=== PATIENT | male | born 1990 | race Caucasian/White ===

== ENCOUNTER 2016-02-22 09:15 | Day surgery (SDC) | payer OTHER ==
[~2016-02-22] VITALS: Ht 180.3 cm; Wt 99.8 kg
[~2016-02-22 09:15] MED LIST: 0.9% Sodium Chloride 1,000 ML IV SCH; ADAL40KI SQ; AZTH50T PO; PRED50TA PO; Sodium Chloride LOK Flush 10 mL Syringe IV PRN; fentaNYL-PF 50 mCg/mL 2 mL Inj IVPUSH PRN
[2016-02-22 09:41] VITALS: BP 138/60; PULSE 67; RESP 16; O2SAT 96
[2016-02-22 10:43] VITALS: BP 103/58; PULSE 60; RESP 14; O2SAT 95
[2016-02-22 10:52] VITALS: BP 104/56; PULSE 65; RESP 14; O2SAT 97
[2016-02-22 10:56] VITALS: BP 110/69; PULSE 88; RESP 14; O2SAT 98
--- NOTE | 2016-02-22 11:53 | ENDO ---
[address] [address] ENDOSCOPY PROCEDURE PATIENT: GABRIELA OVALLES : 1990 MR#: [id number] ADMIT: 02/22/2016 JOB ID: [id number] PROCEDURE: Colonoscopy. INDICATION: The patient with a history of Crohn's disease involving the large intestine, who is currently on treatment with Humira and azathioprine. 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 Currently, he still has one seton in place. ASA CLASSIFICATION: 2. MALLAMPATI SCORE: 2. MEDICATIONS: Versed 6 mg, fentanyl 125 mcg. INSTRUMENT USED: Band Digital-H180-AL. PREPARATION QUALITY: Fair. PROCEDURE DETAILS: After completion of the digital rectal exam, which revealed a blue seton in place, there appeared to be healthy tissue surrounding the seton. A digital rectal exam was otherwise unremarkable. The colonoscope was then inserted into the rectum and advanced under direct visualization to the terminal ileal which was identified by the presence of the ileocecal valve and villous- appearing mucosa of the terminal ileum. Once the terminal ileum was reached, multiple random biopsies were obtained throughout the terminal ileum. The scope was then gradually withdrawn from the terminal ileum, and in the cecum, the mucosa appeared unremarkable. 1. Starting from the distal ascending colon to the distal sigmoid colon and portions of the rectum, the mucosa had an appearance consistent with neovascularization, along with evidence of prior scar tissue. There was also pseudopolyps seen throughout the distal ascending colon extending to the sigmoid colon. 2. Multiple random biopsies were obtained throughout the right colon, transverse colon, left colon and rectum. 3. In the ascending colon, there was an approximately 4 mm sessile polyp that was removed with a cold snare. 4. There were pseudopolyps in the distal ascending colon that were sampled. IMPRESSION: 1. Neovascularization followed by scar tissue and pseudopolyps involving the distal ascending colon to the sigmoid colon. 2. Ascending colon polyp. 3. Minimal to mildly active Crohn's disease involving the distal ascending colon to the sigmoid colon. 4. Perianal fistula with seton in place. RECOMMENDATIONS: 1. Await biopsy results. 2. Continue Humira and azathioprine at this time. 3. Follow up in the GI Clinic in 4-6 weeks. COMPLICATIONS: None. ESTIMATED BLOOD LOSS: Less than 5 mL.
--- NOTE | 2016-02-23 12:02 | PATH ---
SURGICAL PATHOLOGY Attending Physician:Jai Park CASE STATUS: Signed Out PATIENT NAME: GABRIELA OVALLES PID: [id number] : 1990 DATE COLLECTED:02/22/2016 15:24 SPECIMEN: 1: Ileum, Biopsy 2: Colon, Biopsy 3: Colon, Biopsy 4: Colon, Biopsy 5: Rectum, Biopsy 6: Colon, Biopsy 7: Colon, Biopsy CLINICAL HISTORY: A: TERMINAL ILEUM BIOPSY B: RIGHT COLON BIOPSY C: TRANSVERSE COLON BIOPSY D: LEFT COLON BIOPSY E: RECTUM BIOPSY F: ASCENDING COLON POLYP G: PSEUDOPOLYP DISTAL ASCENDING COLON FINAL DIAGNOSIS: 1.ILEUM, BIOPSY: NORMAL SMALL BOWEL MUCOSA. No significant inflammation identified. No evidence of dysplasia or malignancy. 2.RIGHT COLON BIOPSY: NORMAL COLONIC MUCOSA. No significant inflammation identified. No evidence of dysplasia or malignancy. 3.TRANSVERSE COLON BIOPSY: NORMAL COLONIC MUCOSA. No significant inflammation identified. No evidence of dysplasia or malignancy. 4.LEFT COLON BIOPSY:PATCHY, MILD ACTIVE COLITIS WITHOUT DISTORTION OF THE MUCOSAL ARCHITECTURE. Negative for granulomas, dysplasia and malignancy. 5.RECTUM BIOPSY: NORMAL COLONIC MUCOSA. No significant inflammation identified. No evidence of dysplasia or malignancy. 6.ASCENDING COLON POLYP: SESSILE SERRATED ADENOMA. No evidence of invasive neoplasm or high-grade dysplasia. 7.POLYP, DISTAL ASCENDING COLON: BENIGN COLONIC MUCOSA CONSISTENT WITH POLYPOID REDUNDANCY. No evidence of malignancy or dysplasia. ICD10 code K51.9 D12.6 GROSS DESCRIPTION: The specimen is received in seven formalin filled containers labeled with the patient's name. 1). The specimen is sublabeled "terminal ileum" and consists of 2 portions of tissue which aggregate to 0.4 x 0.4 x 0.3 CM. The specimen is entirely submitted in cassette 1A. 2). The specimen is sublabeled "right colon" and consists of multiple portions of tissue which aggregate to 0.5 x 0.5 x 0.2 CM. The specimen is entirely submitted in cassette 2A. 3). The specimen is sublabeled "transverse colon" and consists of multiple portions of tissue which aggregate to 0.5 x 0.5 x 0.2 CM. The specimen is entirely submitted in cassette 3A. 4). The specimen is sublabeled "left colon" and consists of 4 portions of tissue which aggregate to 0.5 x 0.5 x 0.3 CM. The specimen is entirely submitted in cassette 4A. 5). The specimen is sublabeled "rectum" and consists of 3 portions of tissue which aggregate to 0.6 0.6 0.3 CM. The specimen is entirely submitted in cassette 5A. 6). The specimen is sublabeled "ascending colon polyp" and consists of 3 portions of tissue which aggregate to 0.7-0.3 x 0.2 CM. The specimen is entirely submitted in cassettes 6A. 7). The specimen is sublabeled "pseudopolyp distal ascending colon" and consists of 2 portions of tissue which aggregate to 0.4 x 0.3 x 0.2 CM. The specimen is entirely submitted in cassette 7A. 02/22/2016 DAC MICRO DESCRIPTION: See diagnosis. ICD-9 CODES: CPT CODES: 1: 65701 2: 31511 3: 54779 4: 23650 5: 75955 6: 57605 7: 18635 Electronically Signed Out Jose Almanzar MD [facility] Pathology [facility] [address] [facility], [place] [address] Technical component performed at [facility], [facility] [address], [place], [address]
== END 2016-02-22 23:59 | disposition home or self-care (01) ==
LOC: END 09:15
PROVIDERS: ATTEND Internal Medicine Gastroenterology
DX: K50.113 Crohn's disease of large intestine with fistula (principal); K52.9 Noninfective gastroenteritis and colitis, unspecified; D12.2 Benign neoplasm of ascending colon; K63.5 Polyp of colon; J30.2 Other seasonal allergic rhinitis; Z79.52 Long term (current) use of systemic steroids
CPT/HCPCS: 45380; J2250; J7030

== ENCOUNTER 2016-07-18 05:51 | Day surgery (SDC) | payer OTHER ==
[2016-07-18] VITALS (9 sets, daily range): BP systolic 112–147; BP diastolic 60–82; PULSE 62–102; RESP 16–22; O2SAT 94–100
[~2016-07-18] VITALS: Ht 180.3 cm; Wt 105.7 kg
[~2016-07-18 05:51] MED LIST changes: -0.9% Sodium Chloride 1,000 ML IV SCH; +Lactated Ringer's 1,000 ML IV ONE; -PRED50TA PO; -Sodium Chloride LOK Flush 10 mL Syringe IV PRN; -fentaNYL-PF 50 mCg/mL 2 mL Inj IVPUSH PRN
[2016-07-18] MEDS ORDERED: Dexamethasone 4 mg/mL Inj ONE (05:52)
[2016-07-18] MEDS ORDERED: Ondansetron 2 mg/mL 2 mL Inj ONE (05:52)
[2016-07-18] MEDS ORDERED: Propofol 10,000 mCg/mL 20 mL Inj ONE (05:52)
[2016-07-18] MEDS ORDERED: fentaNYL-PF 50 mCg/mL 2 mL Inj ONE (05:52)
--- NOTE | 2016-07-18 07:22 | PCM.HPANE ---
Patient Data Surgeon Admitting Provider: Attending Provider:Elgin Malik MD Primary Care Physician:Jackie Other Provider:Claudia Garcia Anesthesia Reason for Visit Fistula In Ano, Crohn's Disease Ht/WT & BMI Height (Feet): 5 Height (Inches): 11.00 Weight (Kilograms): 105.7 Body Mass Index 32.00 Allergies Coded Allergies: No Known Allergies (Verified Allergy, Unknown, 07/14/16) Past Anesthesia History Anesthesia History: Denies:: Abnormal Airway, Anesthesia Reactions, Difficult Intubation, Fam Anesthesia Reaction, Fam Malignant Hypertherm, Malignant Hyperthermia Diabetes History Hx Diabetes?: No Current Bedside Blood Glucose: 99 MRSA MRSA: No Medications Home Meds Incl Beta Scot: No Reported Medications Adalimumab (Humira)40 Mg/0.8 Ml Kit40 Mg SQ every other week 06/12/14 Azathioprine 50 Mg Tablet3 Tab PO DAILY 30 Days Ref 0 06/12/14 History History of ENT Problems?: Yes HEENT History: Positive for:: Sinus Problem (SEASONAL ALLERGIES HX LARYNGITIS) Denies:: Abnormal Airway Difficult Intubation Dysphagia Hearing Problem Denture Type: None Teeth Condition: Within Normal Limits Other HEENT Pertinent History: S/P WISDOM TEETH EXTRACTIONS Hx of Heart Problems?: No Cardiovascular History: Denies:: AICD Atrial Fibrillation Chest Pain Congestive Heart Failure Heart Murmur Hypertension Pacemaker Valvular Heart Disease Hx of Respiratory Problem?: Yes Respiratory History: Positive for:: Dyspnea (HX WHEEZING W/ URI'S) Denies:: Asthma COPD Cough Hemoptysis Pneumonia Tuberculosis Use of C-PAP Machine Hx Neurologic Problems?: No Neurological History: Denies:: CVA Dementia Hx of GI Problems?: Yes Other GI Pertinent History: S/P SETON PLAEMENT ([address]) C/OF DIARRHEA HAS SEEN DR[facility] FRANCISCO HIDALGO/[facility] INFLAMMATORY BOWEL CLINIC DISTULA IN ANO/CROHN'S=CURRENT PROBLEM Hx of Problems?: No Male Hx: Denies:: Prostate Problems Scrotal Mass Testicular Surgery Skin History: Denies:: History Skin Disorders? Pressure Ulcers Hx Musculoskeletal Problems?: No Musculoskeletal History: Denies:: Joint Replacement Hx of Psycho/Social Problems?: No Psycho Social History: Denies:: Anxiety Hx Depression Hx Surgeries?: Yes (perirectal fistula, upper wisdom teeth removed,SETON PLCMT) Hx Any Other Health Problems?: Yes Other History: Positive for:: Hospitalization (for crohn's ) Denies:: Cancer Endocrine Disease Thyroid Disease History Blood Transfusions: Denies:: Blood Transfusions Hx Diabetes: NoBedside Blood Glucose: 99 Hx Alcohol Use: Yes (rarely )Hx Substance Use: No Smoking Status: Current Every Day Smoker Light Tobacco Smoker Have You Smoked inLast 12 mo: Yes (pipe) Stop/Bang S-Snoring: Do You Snore Loudly: No T-Tired: feel tired, fatigued: No O-Obsered: Observed not breath: No P-Blood Pressure: treated: No B- Body Mass Index > 35 kg/m2: No A- Age over 50: No N- Neck Large Circumference: Yes G- Gender Male: Yes DEMETRIUS Total Score: 2 DEMETRIUS Risk Assessment: Low Risk, <3 Yes Risk Assessment Category Category 1A: Patient has history of documented sleep apnea, and HAS NOT received any narcotic, sedative or anesthesia administration during this stay. Category 1B: Patient has history of documented sleep apnea, and HAS received any narcotic , sedative or anesthesia administration during this stay Category 2: Patient has SUSPECTED Obstructive Sleep Apnea, and HAS received any narcotic , sedative or anesthesia administration during this stay. Category 3: Patient has SUSPECTED Obstructive Sleep Apnea and HAS NOT received narcotic, sedative or anesthesia administration during this stay. Category 4: Outpatient in Procedural Areas with known sleep apnea or who screen positive for High Risk via the STOP/BANG questionnaire. Exam Exam Vital Signs Vital Signs Date Time Temp Pulse Resp B/P Pulse Ox O2 Delivery O2 Flow Rate FiO2 07/18/16 06:31 37.2 74 18 142/82 99 Room Air General Appearance: Alert, Oriented X3, Cooperative, No Acute Distress HEENT/AIRWAY: MP 2 Lungs: Clear to Auscultation, Normal Air Movement Heart: Exam Unremarkable, Regular Rate/Rhythm, No Murmurs/Rubs/Gallops Meds/Labs/Diagnostics Admission Meds Current Medications Lactated Ringer's (Lr) 1,000 ml @ 120 mls/hr Q8H20M ONCE IV Last administered on 07/18/16t 05:15; Start 07/18/16 at 05:00; Stop 07/18/16 at 13:19 Bedside Blood Glucose: 99 Plan Impression Patient chart reviewed, patient interviewed and anesthestic plan with risks, benefits, and alternatives discussed, and informed consent obtained. NPO per Anesth. Guidelines: Yes ASA Physical Status: ASA2 Mod Systemic Disease Anesthetic Plan: GA Bene/Risks/Altern/Consents: Yes HP Complete Prior to Induction: Yes Ishmael Montes De Oca MD July 18, 2016 07:22
[2016-07-18] MEDS ORDERED: Bupivacaine-MPF 0.25%/EPI 30 mL Inj INFILTRATE ONE (07:41)
[2016-07-18] MEDS ORDERED: Lactated Ringer's 1,000 ML IV SCH (07:46)
[2016-07-18] MEDS ORDERED: Lactated Ringer's 500 ML IV PRN (07:46)
[2016-07-18] MEDS ORDERED: MetoCLOpramide 5 mg/mL 2 mL Inj IVPUSH PRN (07:50)
[2016-07-18] MEDS ORDERED: HYDROmorphone 1 mg/mL Inj IVPUSH PRN (07:50)
[2016-07-18] MEDS ORDERED: Dexamethasone 4 mg/mL Inj IVPUSH PRN (07:50)
[2016-07-18] MEDS ORDERED: Atropine 0.4 mg/mL Inj IVPUSH PRN (07:50)
[2016-07-18] MEDS ORDERED: fentaNYL-PF 50 mCg/mL 2 mL Inj IVPUSH PRN (07:50)
[2016-07-18] MEDS ORDERED: EPHEDrine Sulfate 50 mg/mL Inj IVPUSH PRN (07:50)
[2016-07-18] MEDS ORDERED: Ondansetron 2 mg/mL 2 mL Inj IVPUSH PRN (07:50)
[2016-07-18] MEDS ORDERED: Phenylephrine 10,000 mCg/mL Inj IVPUSH PRN (07:50)
[2016-07-18] MEDS ORDERED: HYDROcodone-APAP 5-325 mg Tablet PO PRN (08:15)
--- NOTE | 2016-07-18 08:22 | PCM.ANEP1 ---
Post Anesthesia PACU Phase 1 Assessment Vital Signs Vital Signs Date Time Temp Pulse Resp B/P Pulse Ox O2 Delivery O2 Flow Rate FiO2 07/18/16 08:20 36.5 87 17 141/71 95 Room Air 07/18/16 08:15 96 19 138/69 97 Room Air 07/18/16 08:10 102 19 147/64 100 Simple Mask 8 07/18/16 08:05 102 21 132/78 100 Simple Mask 8 07/18/16 08:02 36.5 102 22 139/60 99 Simple Mask 8 07/18/16 06:31 37.2 74 18 142/82 99 Room Air Anesthetic Administered: GA Level of Alertness: Awake, talking BLUM's with Equal Strength: Yes Pain: No Nausea or Vomiting: No CV Function & Hydration Stable: Yes Airway Device: Oralpharangeal Airway (LMA) Oxygen Delivery: Room Air Lungs: Clear to Auscultation, Normal Air Movement Dermatome Level: Full Sensation PACU Phase 2 Assessment Complications: No Follow up Care: N/A Patient Instructions Provided: Yes Ishmael Montes De Oca MD July 18, 2016 08:22
--- NOTE | 2016-07-18 09:29 | OP ---
[address] [address] OPERATIVE REPORT PATIENT: GABRIELA OVALLES : 1990 MR#: [id number] ADMIT: 07/18/2016 JOB ID: [id number] DATE OF SURGERY: 07/18/2016 PREOPERATIVE DIAGNOSIS(ES): 1. Fistula in ano. 2. History of Crohn's disease. POSTOPERATIVE DIAGNOSIS(ES): 1. Fistula in ano. 2. History of Crohn's disease. PROCEDURE: 1. Anoscopy. 2. Anal fistulotomy. 3. Removal of seton. 4. Anal block. SURGEON: Elgin Malik MD SENIOR ENVIRONMENTAL CONSULTANT: Monica Ignacio PA-C INDICATIONS: The patient is a 26-year-old man who has Crohn's disease. He initially presented with two anal fistula. I placed setons in both of them. One is at the 10 o'clock position, right anterior radius. The other was near the posterior midline. The posterior midline fistula, eventually the non-cutting seton worked its way through and there was just a thin rim of skin that was keeping it in place, and that was removed about a year ago. He has recently had some pain. It was in the area of the current seton. He said Dr. Trae Glass from the [facility] at the [facility]. By the time I saw the patient, his pain had all resolved and there was no ongoing drainage. After discussing options with the patient, it was elected to proceed with an evaluation under anesthesia and possible fistulotomy and removal of the seton. FINDINGS: There was a small area of the external sphincter that was still within the seton, but there was clear, intact sphincter above the seton. I elected to remove the seton and divide the intervening tissue. There was also some hairs that were stuck around that and it looked like some local inflammation, likely the explanation of his recent pain. There is no other fistulas identified. DESCRIPTION OF PROCEDURE: At the beginning and end of the operation, the SCOAP checklist was completed. An LMA anesthetic was induced. He was placed in the lithotomy position. Using Betadine, prepped and draped in the usual fashion. An anoscope was inserted. I saw no active distal rectal inflammation. There was no high internal site. The seton, as stated above, had worked its way through the vast majority of the sphincter, leaving intact sphincter above. I then did an anal block with a total of 30 cc of 0.25% bupivacaine with epinephrine. The remaining tissue contained by the seton was opened with cautery. As stated above, there is some extraneous hairs that were all removed. There is less than 10 cc of bleeding. There were no apparent complications. The final sponge, needle, and instrument counts were announced as correct. An ABD was applied. He was returned to the recovery room in stable condition. Critical assistance was provided by Monica Ignacio PA-C. CC: Trae Glass MD, [facility]
== END 2016-07-18 23:59 | disposition home or self-care (01) ==
LOC: SAS 05:51
PROVIDERS: ATTEND Surgery
DX: K60.3 Anal fistula (principal); K50.113 Crohn's disease of large intestine with fistula; J30.2 Other seasonal allergic rhinitis; F17.210 Nicotine dependence, cigarettes, uncomplicated
CPT/HCPCS: 46030; 46280; J1100; J2250; J2405; J3010; J7120